=== PATIENT | female | born 1980 | race Caucasian/White ===

== ENCOUNTER 2018-04-28 07:34 | Emergency (ER) | payer MEDICAID ==
[2018-04-28 07:41] VITALS: BP 117/76; PULSE 76; RESP 18; TEMP 98.1
[2018-04-28] MEDS ORDERED: KETOROLAC 30 MG/ML 1 ML VIAL IM STA (07:53)
--- NOTE | 2018-04-28 07:53 | ED ---
General Adult HPI - General Chief complaint: Extremity Injury, Lower Stated complaint: left foot pain Time Seen by Provider: 04/28/18 07:43 Source: patient Mode of arrival: ambulatory Limitations: no limitations - Related Data Previous Rx's Medication Instructions Recorded HYDROcodone/APAP 5-325MG [Ralston 1 tab PO Q6HR PRN 3 Days #6 tab 04/28/18 5-325] Allergies Allergy/AdvReac Type Severity Reaction Status Date / Time latex Allergy Rash/Hives Verified 04/28/18 07:36 Review of Systems ROS Statement: Those systems with pertinent positive or pertinent negative responses have been documented in the HPI. ROS Other: All systems not noted in ROS Statement are negative. Past Medical History Past Medical History: No Reported History Additional Past Medical History / Comment(s): ectopic History of Any Multi-Drug Resistant Organisms: None Reported Past Psychological History: No Psychological Hx Reported Smoking Status: Former smoker Past Alcohol Use History: Occasional Past Drug Use History: None Reported General Exam Limitations: no limitations Course Vital Signs 04/28/18 07:36 Temperature 98.1 F Pulse Rate 76 Respiratory 18 Rate Blood Pressure 117/76 O2 Sat by Pulse 97 Oximetry Medical Decision Making - Medical Decision Making Dictation was produced using [facility] dictation software. please excuse any grammatical, word or spelling errors. Chief Complaint: 38-year-old female presents with left foot pain. History of Present Illness: Patient's 38-year-old female presents with left foot pain. Patient states her pain started last night at approximately 9 PM. Patient denies any inciting event to the left foot. States it started hurting last night. She went to bed when she woke up this morning. She tried to ambulate when she experience severe left pain with dorsiflexion of the left foot. Patient reports improvement of symptoms with plantar flexion. Patient denies any problems with the left foot. She does have a small mass over the arch of her foot. The ROS documented in this emergency department record has been reviewed and confirmed by me. Those systems with pertinent positive or negative responses have been documented in the HPI. All other systems are other negative and/or noncontributory. PHYSICAL EXAM: General Impression: Alert and oriented x3, not in acute distress HEENT: Normocephalic atraumatic, extra-ocular movements intact, pupils equal and reactive to light bilaterally, mucous membranes moist. Cardiovascular: Heart regular rate and rhythm, S1&S2 audible, no murmurs, rubs or gallops Chest: Lungs clear to auscultation bilaterally, no rhonchi, no wheeze, no rales Abdomen: Bowel sounds present, abdomen soft, non-tender, non-distended, no organomegaly Musculoskeletal: Pulses present and equal in all extremities, no peripheral edema, tenderness to palpation of the left dorsum. No erythema Motor: Power 5/5 bilaterally, no focal deficits noted Neurological: CN II-XII grossly intact, no focal motor or sensory deficits noted Skin: Intact with no visualized rashes Psych: Normal affect and mood ED course: 38-year-old female presents with left dorsal foot pain. No inciting traumatic event. no history of gout. Patient denies any gout risk factors. Vital signs upon arrival are within acceptable limits. Patient's foot appears atraumatic. Patient denies . X-rays are unremarkable. Patient given some Toradol with improvement of symptoms. At this point there is no clear answer as to the patient's symptoms are from. Highly doubt Lisfranc injury. Patient does have a cyst to the plantar surface of the foot which may cause imbalance causing stress injury versus tendinitis. Patient told to rest the foot. Patient told to ambulate with crutches until pain improves. Patient given referral to foot and ankle specialist. Given prescription for analgesia. Disposition Clinical Impression: Foot pain Disposition: HOME SELF-CARE Condition: Fair Instructions (If sedation given, give patient instructions): Arthralgia (ED) Prescriptions: HYDROcodone/APAP 5-325MG [Ralston 5-325] 1 tab PO Q6HR PRN 3 Days #6 tab PRN Reason: Severe Pain Is patient prescribed a controlled substance at d/c from ED?: Yes If prescribed controlled substance>3 days was MAPS reviewed?: Prescribed <3 Days Referrals: Darvin Guajardo MD [Medical Doctor] - 1-2 days Time of Disposition: 08:40
--- NOTE | 2018-04-28 08:29 | XR ---
EXAMINATION TYPE: XR foot complete LT DATE OF EXAM: 04/28/2018 CLINICAL HISTORY: Left foot pain near metatarsals. TECHNIQUE: Frontal, lateral, and oblique images of the left foot are obtained. COMPARISON: None FINDINGS: There is no acute fracture/dislocation evident in the left foot. The joint spaces in the left foot appear within normal limits. Mild subcutaneous edema along the lateral and plantar surface is noted most prominent hindfoot level. IMPRESSION: There is no acute fracture or dislocation in the left foot.
== END 2018-04-28 08:49 | disposition home or self-care (01) ==
LOC: EC 07:34
DX: M79.672 Pain in left foot (principal); L72.9 Follicular cyst of the skin and subcutaneous tissue, unspecified; Z91.040 Latex allergy status; Z87.891 Personal history of nicotine dependence
CPT/HCPCS: 73630; 99283; 96372; J1885

== ENCOUNTER → 2018-06-06 | Outpatient (CLI) | payer MEDICAID ==
--- NOTE | 2018-06-06 12:01 | US ---
EXAMINATION TYPE: US pelvic complete DATE OF EXAM: 06/06/2018 COMPARISON: NONE CLINICAL HISTORY: N92.1 Excessive and frequent menstruation. TECHNIQUE: Transabdominal (TA). Transabdominal sonographic images of the pelvis were acquired. Tra nsvaginal sonographic images were medically necessary to better assess the following anatomy: Date of LMP: 05/18/18 EXAM MEASUREMENTS: Uterus: 9.0 x 5.6 x 7.0 cm Endometrial Stripe: 1.0 cm Right Ovary: 3.1 x 1.8 x 1.6cm Left Ovary: 3.9 x 2.2 x 2.6 cm 1. Uterus: Anteverted, multiple fibroids, largest 2 measuring 1.7 x 1.3 x 1.9cm, and 2.9 x 2.2 x 2.6 cm 2. Endometrium: wnl 3. Right Ovary: wnl 4. Left Ovary: wnl 5. Bilateral Adnexa: wnl 6. Posterior cul-de-sac: wnl IMPRESSION: Fibroid uterus with the largest measuring 2.9 cm. These appear intramural with some possi issac subserosal. Endometrial thickness and ovaries are within normal limits.
== END | disposition home or self-care (01) ==
LOC: RADUSWWP 09:49
PROVIDERS: ATTEND Obstetrics & Gynecology
DX: D25.1 Intramural leiomyoma of uterus (principal)
CPT/HCPCS: 76856

== ENCOUNTER 2018-06-28 07:47 | Day surgery (SDC) | payer MEDICAID ==
[2018-06-20 10:50] LABS: Basophils # (A) 0.1 k/uL (0-0.2); Basophils % (A) 1 %; Eosinophils # (A) 0.2 k/uL (0-0.7); Eosinophils % (A) 4 %; HCT 37.5 % (34.0-46.0); HGB 12.6 gm/dL (11.4-16.0); Lymphocytes # (A) 2.3 k/uL (1.0-4.8); Lymphocytes % (A) 41 %; MCH 29.6 pg (25.0-35.0); MCHC 33.7 g/dL (31.0-37.0); Mean Platelet Volume 8.6; Monocytes # (A) 0.4 k/uL (0-1.0); Monocytes % (A) 8 %; Neutrophils # (A) 2.4 k/uL (1.3-7.7); Neutrophils % (A) 44 %; Platelet Count 269 k/uL (150-450); RBC 4.27 m/uL (3.80-5.40); WBC 5.5 k/uL (3.8-10.6)
[2018-06-26 08:52] VITALS: BMI 31.2
--- NOTE | 2018-06-28 06:52 | P.HPOB ---
History of Present Illness H&P Date: 06/28/18 Chief Complaint: Menorrhagia with irregular cycle 38 year old presents for D&C hysteroscopy and endometrial ablation with NovaSure. Review of Systems All systems: negative Constitutional: Denies chills, Denies fever Eyes: denies blurred vision, denies pain Ears, nose, mouth and throat: Denies headache, Denies sore throat Cardiovascular: Denies chest pain, Denies shortness of breath Respiratory: Denies cough Gastrointestinal: Denies abdominal pain, Denies diarrhea, Denies nausea, Denies vomiting Genitourinary: Denies dysuria, Denies hematuria Musculoskeletal: Denies myalgias Integumentary: Denies pruritus, Denies rash Neurological: Denies numbness, Denies weakness Psychiatric: Denies anxiety, Denies depression Endocrine: Denies fatigue, Denies weight change Past Medical History Past Medical History: No Reported History Additional Past Medical History / Comment(s): heavy, frequent periods History of Any Multi-Drug Resistant Organisms: None Reported Additional Past Surgical History / Comment(s): D & C, laparoscopic salpingectomy due to ectopic Past Anesthesia/Blood Transfusion Reactions: No Reported Reaction Smoking Status: Former smoker - Past Family History Mother Family Medical History: No Reported History Medications and Allergies Home Medications Medication Instructions Recorded Confirmed Type Acetaminophen Tab [Tylenol Tab] 650 mg PO Q4H PRN 06/26/18 06/26/18 History Ibuprofen [Motrin Ib] 200 - 400 mg PO Q6H PRN 06/26/18 06/26/18 History Allergies Allergy/AdvReac Type Severity Reaction Status Date / Time latex Allergy Rash/Hives Verified 06/26/18 08:48 Exam Osteopathic Statement: *. No significant issues noted on an osteopathic structural exam other than those noted in the History and Physical/Consult. Heart: RRR Lungs: CTAB Abdomen: soft, nontender Extremeties: neg reagan's Results Result Diagrams: 06/20/18 10:42 Assessment and Plan (1) Menorrhagia with irregular cycle Status: Acute Code(s): N92.1 - EXCESSIVE AND FREQUENT MENSTRUATION WITH IRREGULAR CYCLE SNOMED Code(s): 894257835 Plan: 1. D&C hysteroscopy and endometrial ablation with NovaSure
[~2018-06-28 07:47] MED LIST: DEXAMETHASONE SOD PHOSPHATE 10 MG/ML 1 ML VIAL IV ONE; HYDROmorphone 0.5 MG/0.5 ML SYRINGE IVP PRN; LACTATED RINGERS 1,000 ML IV SCH; LIDOCAINE 1% 20 ML VIAL (10MG/ML) FOR IV START INTRADERMA PRN; MIDAZOLAM (PF) 2 MG/2 ML VIAL IV PRN; ONDANSETRON 4 MG/2 ML VIAL IVP ONE; Pre Op ABX Message 1 EACH MISC MISCELLANE ONE; SCOPOLAMINE 1.5MG/72HR PATCH TRANSDERM ONE
[2018-06-28] MEDS ORDERED: GLYCOPYRROLATE 0.2 MG/ML 2 ML VIAL ONE (09:11)
[2018-06-28] MEDS ORDERED: LIDOCAINE 1% INJ 10MG/ML (20 ML MDV) ONE (09:11)
[2018-06-28] MEDS ORDERED: MIDAZOLAM 2 MG/2 ML VIAL ONE (09:11)
[2018-06-28] MEDS ORDERED: NEOSTIGMINE 1 MG/ML 10 ML VIAL ONE (09:11)
[2018-06-28] MEDS ORDERED: ROCURONIUM BROMIDE 10 MG/ML 10 ML VIAL IV ONE (09:11)
[2018-06-28] MEDS ORDERED: PROPOFOL 10 MG/ML 20 ML VIAL IV ONE (09:11)
[2018-06-28] MEDS ORDERED: fentaNYL (PF) 50 MCG/ML 2 ML AMP ONE (09:11)
[2018-06-28] MEDS ORDERED: BUPIVACAINE (PF) 0.5% 30 ML VIAL SQ ONE (10:10)
--- NOTE | 2018-06-28 10:35 | P.OP ---
Date of Procedure: 06/28/18 Preoperative Diagnosis: 1. Menorrhagia with irregular cycle 2. Family planning Postoperative Diagnosis: 1. Menorrhagia with irregular cycle 2. Family planning Procedure(s) Performed: D&C hysteroscopy with NovaSure ablation, laparoscopic tubal ligation Anesthesia: BEBO Surgeon: Amalia Jaquez Estimated Blood Loss (ml): 5 IV fluids (ml): 500 Urine output (ml): 200 Pathology: other (Endometrial curettings) Condition: stable Disposition: PACU Operative Findings: Moderate amount of endometrial curettings, and hysteroscopy I did see a septum at the fundus of the uterus, both ostia visualized. Cavity length 6.5 cm, width 4.0 cm, power 143 W, time of ablation 55 seconds. Adequate ablation after NovaSure. Normal uterus seen on laparoscopy, both fallopian tubes visualized, the right fallopian tube was scarred to the small bowel. Description of Procedure: Patient is taken the operating room where general anesthesia was obtained without difficulty. She was prepped and draped in normal sterile fashion dorsal lithotomy position, legs placed in the Urlist cane stirrups. Bladder was drained of all urine. Weighted speculum placed in the vagina and the anterior lip the cervix was grasped with serial tooth tenaculum. The uterus sounded to 10 cm and the cervix under 3.5 cm making the cavity length 6.5 cm. The cervix was dilated to #8 Hegar dilator. Hysteroscopy was then performed. Both ostia were visualized and there was a septum noted at the fundus of the uterus. Sharp curet was then gently used to obtain endometrial curettings. The NovaSure was introduced into the uterus with a cavity length of 6.5 cm, width 4 cm. after cavity assessment was passed, the time of ablation was 55 seconds at 143 W. Hysteroscopy was again performed and adequate ablation was noted. All instruments removed from the vagina. The [employer] manipulator was placed. Attention was then turned to the abdomen and gloves were changed. A 10 mm infraumbilical incision was made the scalpel and 10 mm optical trocar was placed under direct visualization. A 5 mm suprapubic Incision was made and a 5 mm optical trocar was placed under direct visualization. Survey of the pelvis revealed normal uterus tubes and ovaries. The left fallopian tube was scarred to the small bowel at the fimbriated end. The left fallopian tube was grasped with a Kleppinger and fulgurated 2-3 cm on this side in the ampullar portion. The right fallopian tube was grasped with a Kleppinger and fulgurated 2-3 cm in the ampullar portion. All instruments were then removed from the abdomen and vagina. The 10 mm infraumbilical incision was closed with 0 Vicryl and the fascial layer and then 4-0 Vicryl in a subcuticular fashion. The 5 mm incision was closed with 4-0 Vicryl in a subcuticular fashion. Patient tolerated pro cedure well, sponge and instrument counts correct 2 and she was taken to recovery room in stable condition.
[2018-06-28] MEDS ORDERED: ONDANSETRON 4 MG/2 ML VIAL IVP ONE (10:40)
[2018-06-28 10:48] VITALS: RESP 16; TEMP 97.7
[2018-06-28] MEDS ORDERED: KETOROLAC 30 MG/ML 1 ML VIAL IVP ONE (10:55)
[2018-06-28] MEDS ORDERED: LACTATED RINGERS 1,000 ML IV ONE (11:24)
[2018-06-28 11:46] VITALS: PULSE 53
[2018-06-28 11:49] VITALS: BP 119/71
== END 2018-06-28 12:17 | disposition home or self-care (01) ==
LOC: OR 07:47
PROVIDERS: ATTEND Obstetrics & Gynecology
DX: N92.0 Excessive and frequent menstruation with regular cycle (principal); Z30.2 Encounter for sterilization; Z87.891 Personal history of nicotine dependence; E66.9 Obesity, unspecified; Z68.31 Body mass index [BMI] 31.0-31.9, adult; Z91.040 Latex allergy status
CPT/HCPCS: 81025; 88305; 85025; 58563; 58670; J2250; J1100; J2710; J2405; J2001; J3010; J1885; J2704

== ENCOUNTER → 2020-06-02 | Outpatient (CLI) | payer MEDICAID, OTHER ==
--- NOTE | 2020-06-02 14:01 | MR ---
EXAMINATION TYPE: MR knee RT wo con DATE OF EXAM: 06/02/2020 COMPARISON: X-ray 04/09/2020 HISTORY: Right Knee Pain. Outer right side of knee is most painful. Started 9 months ago, no injury TECHNIQUE: Multiplanar, multisequence imaging of the right knee is performed without IV contrast. FINDINGS: MEDIAL MENISCUS: There is intrasubstance signal in the posterior horn the medial meniscus. Mucoid deg eneration favored over tear. LATERAL MENISCUS: There is grade 3 linear signal in the posterior horn of the medial meniscus compati ble with a linear tear. CRUCIATE LIGAMENTS: The anterior and posterior cruciate ligaments are intact and unremarkable. COLLATERAL LIGAMENTS: The medial collateral ligament and lateral collateral ligament complex are inta ct and unremarkable. EXTENSOR MECHANISM: Visualized quadriceps and patellar tendons are intact. EFFUSION: No significant suprapatellar joint effusion. POPLITEAL CYST: No popliteal/rodas cyst. TRICOMPARTMENT SPACES: Mild narrowing of the joint spaces with no erosive change. Mild thinning of th e posterior lateral femoral condylar cartilage BONE MARROW SIGNAL: Small focal less than 1 cm area of abnormal signal posterior lateral femoral cond yle is nonspecific and may represent a small area of reactive marrow edema. Early osteochondritis fel t less likely. IMPRESSION: 1. Findings are compatible with a tear involving the posterior horn of the lateral meniscus. 2. Extensive degeneration favored over subtle tear posterior horn medial meniscus 3. 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 There is adjacent abnormal marrow signal measuring less than centimeter which may represent react jody marrow edema although early osteochondritis not excluded. 4. No evidence of ligamentous injury
== END ==
LOC: RADMRIMAIN 09:40
PROVIDERS: ATTEND Orthopaedic Surgery
DX: M17.11 Unilateral primary osteoarthritis, right knee (principal); M94.261 Chondromalacia, right knee

== ENCOUNTER 2020-06-23 11:03 | Day surgery (SDC) | payer MEDICAID, OTHER ==
[2020-06-18 15:59] VITALS: BMI 30.9
[~2020-06-23 11:03] MED LIST changes: -DEXAMETHASONE SOD PHOSPHATE 10 MG/ML 1 ML VIAL IV ONE; +DEXAMETHASONE SOD PHOSPHATE 4 MG/ML 1 ML VIAL IV ONE; +LIDOCAINE 1% (10MG/ML) FOR IV START INTRADERMA PRN; -LIDOCAINE 1% 20 ML VIAL (10MG/ML) FOR IV START INTRADERMA PRN; -MIDAZOLAM (PF) 2 MG/2 ML VIAL IV PRN; +MIDAZOLAM 2 MG/2 ML VIAL IV PRN; -ONDANSETRON 4 MG/2 ML VIAL IVP ONE; -SCOPOLAMINE 1.5MG/72HR PATCH TRANSDERM ONE
[2020-06-23] MEDS ORDERED: ONDANSETRON 4 MG/2 ML VIAL IVP ONE (11:32)
[2020-06-23] MEDS ORDERED: ONDANSETRON 4 MG/2 ML VIAL ONE (11:33)
[2020-06-23] MEDS ORDERED: fentaNYL (PF) 50 MCG/ML 2 ML AMP ONE (12:21)
[2020-06-23] MEDS ORDERED: ceFAZolin 1,000 MG VIAL IVPB ONE (12:21)
[2020-06-23] MEDS ORDERED: LIDOCAINE 1% INJ 10MG/ML (20 ML MDV) ONE (12:21)
[2020-06-23] MEDS ORDERED: BUPIVACAINE (PF) 0.5% 30 ML VIAL INTRAARTIC ONE (12:21)
[2020-06-23] MEDS ORDERED: MIDAZOLAM 2 MG/2 ML VIAL ONE (12:21)
[2020-06-23] MEDS ORDERED: PROPOFOL 10 MG/ML 20 ML VIAL IV ONE (12:21)
--- NOTE | 2020-06-23 13:01 | P.OP ---
Date of Procedure: 06/23/20 Preoperative Diagnosis: torn lateral meniscus right knee Postoperative Diagnosis: 1. Torn lateral meniscus right knee 2. grade 2 chondromalacia patellofemoral compartment 3. Synovitis Procedure(s) Performed: 1. Arthroscopy of the right knee with partial lateral meniscectomy (20% of the meniscus excised) 2. Chondroplasty of the patellofemoral compartment 3. partial synovectomy of the medial femoral, lateral femoral, and patellofemoral compartments. Anesthesia: GETA Surgeon: Jeison Williamson Estimated Blood Loss (ml): 5 Pathology: none sent Condition: stable Disposition: PACU Indications for Procedure: this is a 40-year-old female who presented to my office with pain in her right knee. MRI demonstrated a torn lateral meniscus. After discussing the surgical and nonsurgical treatment options, the patient wishes to proceed with arthroscopic debridement of her right knee. Informed consent was obtained. Operative Findings: the operative findings are consistent with a torn lateral meniscus, grade 2 chondromalacia of the patellofemoral compartment, and synovitis. Description of Procedure: Patient was seen and evaluated in the preoperative area, the operative site was marked with a skin marker. The patient was then brought to the operating room and given 2 g of Ancef intravenously. A general anesthetic was administered by the anesthesia department. Tourniquet was placed on the right upper thigh and the left lower extremity was then prepped and draped in usual sterile fashion. A universal timeout was then performed confirming the patient's name, surgical site, ALLERGIES, and consent. The limb was then exsanguinated and tourniquet insufflated to 250 mmHg. Standard inferior medial and inferior lateral portals were established in the knee. The trochar was inserted in the inferolateral portal. Examination began at the patellofemoral joint. There is noted to be grade 2-3 chondral malacia the patellofemoral compartment and a moderate amount of synovitis. Next the medial compartment was visualized. There was no evidence of a tear of the medial meniscus. There was mild amount of synovitis. The notch area was then visualized and the ACL was intact. The Lateral compartment was then visualized and there was a tear of the lateral horn of the lateral meniscus. There was no evidence of chondromalacia, but a mild amount of synovitis. Next, using an arthroscopic shaver and a biter, a partial lateral meniscectomy was also performed with approximately 20% of the lateral meniscus excised. A partial synovectomy is performed the medial femoral, lateral femoral, patellofemoral compartments. Chondroplasty was also performed of the patellofemoral compartment of the knee. Knee was then copiously irrigated, instruments removed, incisions were closed with 4-0 nylon. 30 mL of quarter percent plain Marcaine was injected sterilely into the surgical area. A sterile dressing was then applied, and the tourniquet was released. Patient was then transferred to recovery room in stable condition.condition.
[2020-06-23 13:24] VITALS: TEMP 96.9
[2020-06-23 13:27] VITALS: RESP 16
[2020-06-23] MEDS ORDERED: HYDROcodone/APAP 7.5-325MG 1 EACH TAB ONE (13:51)
[2020-06-23] MEDS ORDERED: HYDROcodone/APAP 7.5-325MG 1 EACH TAB PO ONE (13:52)
[2020-06-23 14:21] VITALS: BP 116/71; PULSE 61
== END 2020-06-23 14:46 | disposition home or self-care (01) ==
LOC: OR 11:03
PROVIDERS: ATTEND Orthopaedic Surgery
DX: M23.200 Derangement of unspecified lateral meniscus due to old tear or injury, right knee (principal); M22.41 Chondromalacia patellae, right knee; M65.9 Synovitis and tenosynovitis, unspecified; Z79.1 Long term (current) use of non-steroidal anti-inflammatories (NSAID); Z97.3 Presence of spectacles and contact lenses; Z98.890 Other specified postprocedural states; Z83.3 Family history of diabetes mellitus; Z82.49 Family history of ischemic heart disease and other diseases of the circulatory system; Z87.891 Personal history of nicotine dependence
CPT/HCPCS: 81025; 29881; J2250; J1100; J2405; J0690; J2001; J3010; J2704

== ENCOUNTER → 2021-03-01 | Outpatient (CLI) | payer MEDICAID, BC, OTHER | END | disposition home or self-care (01) | LOC: LABWHC1 13:40 | PROVIDERS: ATTEND Emergency Medicine | DX: U07.1 COVID-19 (principal) | CPT/HCPCS: 87635 ==

== ENCOUNTER → 2021-12-09 | Outpatient (CLI) | payer MEDICAID, BC ==
--- NOTE | 2021-12-09 08:04 | US ---
EXAMINATION TYPE: US abdomen complete DATE OF EXAM: 12/09/2021 COMPARISON: NONE CLINICAL HISTORY: R14.0 ABDOMINAL DISTENSION , R19.4. bloating, abdominal pain TECHNIQUE: Multiple sonographic images of the abdomen are obtained. FINDINGS: EXAM MEASUREMENTS: Liver Length: 14.7 cm Gallbladder Wall: 0.2 cm CBD: 0.6 cm Spleen: 9.1 cm Right Kidney: 12.0 x 4.8 x 4.4 cm Left Kidney: 12.6 x 5.0 x 5.3 cm Pancreas: Obscured by bowel gas Liver: hyperechoic area = 1.8 x 2.3 x 1.8cm Gallbladder: no evidence of stones Evidence for sonographic Roberto's sign: no CBD: wnl Spleen: wnl Right Kidney: no evidence of hydronephrosis Left Kidney: no evidence of hydronephrosis Upper IVC: wnl Abd Aorta: visualized portions appear wnl, mid obscured by overlying bowel content Suboptimal evaluation pancreas on initial images due to overlying bowel gas. Aorta seen to the bifurc ation without aneurysm. IVC seen near hepatic dome. Visualized liver shows 2.3 x 1.8 cm oval hyperech oic mass. No ductal dilatation. Gallbladder seen without intraluminal gallstones. No hydronephrosis i n either kidney. Spleen normal in size.. IMPRESSION: Suboptimal evaluation of pancreas otherwise unremarkable study. No ascites noted. Solid 2 .3 cm hyperechoic mass in the liver favors hemangioma. Liver protocol contrast enhanced CT and/or MRI can be performed to further evaluate.
--- NOTE | 2021-12-09 08:15 | US ---
EXAMINATION TYPE: US pelvic complete DATE OF EXAM: 12/09/2021 COMPARISON: Ultrasound pelvis June 06, 2018 CLINICAL HISTORY: R14.0 ABDOMINAL DISTENSION , R19.4. bloating, pelvic pain, ablation TECHNIQUE: Transabdominal (TA). Date of LMP: 11/18/21 EXAM MEASUREMENTS: Uterus: 14.4 x 5.5 x 11.3 cm Endometrial Stripe: 0.4 cm Right Ovary: 3.8 x 1.8 x 2.1 cm Left Ovary: 3.7 x 2.4 x 2.5 cm 1. Uterus: Anteverted enlarged. heterogeneous. multiple fibroids noted. largest = 8.5 x 5.1 x 8.5c m 2. Endometrium: limited evaluation due to fibroids, appears wnl 3. Right Ovary: follicles noted 4. Left Ovary: complex area = 2.2 x 1.6 x 1.9cm 5. Bilateral Adnexa: wnl 6. Posterior cul-de-sac: wnl Heterogeneous lobulated enlarged uterus redemonstrated with multiple fibroids. This is measuring larg er than 2019 ultrasound. Endometrial stripe not seen with certainty. No free fluid. Both ovaries are present. Left ovary has suspected involuting follicle. No suspicious adnexal masses. IMPRESSION: Persistent fibroid uterus with suspected interval enlargement from 2019 ultrasound.
== END | disposition home or self-care (01) ==
LOC: RADUSWWP 07:02
PROVIDERS: ATTEND Family Medicine
DX: R16.0 Hepatomegaly, not elsewhere classified (principal); D25.9 Leiomyoma of uterus, unspecified; R19.4 Change in bowel habit
CPT/HCPCS: 76700; 76856

== ENCOUNTER 2023-01-18 11:29 | Emergency (ER) | payer BC ==
[2023-01-18 11:45] VITALS: RESP 18
[2023-01-18] MEDS ORDERED: methylPREDNISolone SOD SUCCI 125 MG/2 ML VIAL IM ONE (12:03)
[2023-01-18] MEDS ORDERED: FAMOTIDINE 20 MG TAB PO STA (12:07)
--- NOTE | 2023-01-18 12:07 | ED ---
Skin/Abscess/FB HPI - General Chief complaint: Skin/Abscess/Foreign Body Stated complaint: Allergic Reaction Time Seen by Provider: 01/18/23 11:40 Source: patient, RN notes reviewed Mode of arrival: ambulatory Limitations: no limitations - History of Present Illness Initial comments: 42-year-old female was unresponsive with chief complaint ALLERGIC reaction states she got into some poison anabel but not still worsening rash and hives. Patient denies any difficulty breathing no difficulty swallowing no other complaints she states she only took Zyrtec today. - Related Data Previous Rx's Medication Instructions Recorded Aspirin 325 mg PO BID 14 Days #28 tab 06/23/20 HYDROcodone/APAP 7.5-325MG [Jupiter 1 tab PO Q4-6H PRN #30 tab 06/23/20 7.5-325] Sennosides [Senokot] 2 tab PO DAILY PRN #60 tablet 06/23/20 predniSONE 50 mg PO DAILY #5 tab 01/18/23 Allergies Allergy/AdvReac Type Severity Reaction Status Date / Time latex Allergy Rash/Hives Verified 01/18/23 11:44 Review of Systems ROS Statement: Those systems with pertinent positive or pertinent negative responses have been documented in the HPI. ROS Other: All systems not noted in ROS Statement are negative. Past Medical History Past Medical History: No Reported History Additional Past Medical History / Comment(s): heavy, frequent periods History of Any Multi-Drug Resistant Organisms: None Reported Past Surgical History: Uterine Ablation Additional Past Surgical History / Comment(s): D & C, laparoscopic salpingectomy due to ectopic Past Anesthesia/Blood Transfusion Reactions: No Reported Reaction Past Psychological History: No Psychological Hx Reported Smoking Status: Former smoker - Past Family History Mother Family Medical History: No Reported History General Exam Limitations: no limitations General appearance: alert, in no apparent distress Head exam: Present: atraumatic, normocephalic, normal inspection Eye exam: Present: normal appearance, PERRL, EOMI. Absent: scleral icterus, conjunctival injection, periorbital swelling ENT exam: Present: normal exam, normal oropharynx, mucous membranes moist Neck exam: Present: normal inspection, full ROM. Absent: tenderness, meningismu s, lymphadenopathy Respiratory exam: Present: normal lung sounds bilaterally. Absent: respiratory distress, wheezes, rales, rhonchi, stridor Neurological exam: Present: alert Skin exam: Present: warm, dry, intact, normal color, rash Course Vital Signs 01/18/23 01/18/23 11:41 12:24 Temperature 97.8 F 98 F Pulse Rate 78 74 Respiratory 18 18 Rate Blood Pressure 146/79 139/72 O2 Sat by Pulse 99 99 Oximetry Medical Decision Making - Medical Decision Making Was pt. sent in by a medical professional or institution (, [facility], CUFF [facility]TER, urgent care, hospital, or longterm...) When possible be specific @ -No Did you speak to anyone other than the patient for history (EMS, parent, family, police, friend...)? What history was obtained from this source @ -No Did you review nursing and triage notes (agree or disagree)? Why? @ -I reviewed and agree with nursing and triage notes Were old charts reviewed (outside hosp., previous admission, EMS record, old EKG, old radiological studies, urgent care reports/EKG's, longterm records)? Report findings @ -No old charts were reviewed Differential Diagnosis (chest pain, altered mental status, abdominal pain women, abdominal pain men, vaginal bleeding, weakness, fever, dyspnea, syncope, headache, dizziness, GI bleed, back pain, seizure, CVA, palpatations, mental health, musculoskeletal)? @ -ALLERGIC reaction, contact dermatitis EKG interpreted by me (3pts min.). @ -None X-rays interpreted by me (1pt min.). @ -None done CT interpreted by me (1pt min.). @ -None done U/S interpreted by me (1pt. min.). @ -None done What testing was considered but not performed or refused? (CT, X-rays, U/S, labs)? Why? @ -None What meds were considered but not given or refused? Why? @ -None Did you discuss the management of the patient with other professionals (professionals i.e. BRUCE Hernandez, CUFF SETTER, lab, RT, psych nurse, professor of social work, gang plank workman, teacher, unemployment insurance hearing officer, case finishing machine adjuster)? Give summary @ -No Was smoking cessation discussed for >3mins.? @ -No Was critical care preformed (if so, how long)? @ -No Were there social determinants of health that impacted care today? How? (Homelessness, low income, unemployed, alcoholism, drug addiction, transportation, low edu. Level, literacy, decrease access to med. care, longterm, rehab)? @ -No Was there de-escalation of care discussed even if they declined (Discuss DNR or withdrawal of care, Hospice)? DNR status @ -No What co-morbidities impacted this encounter? (DM, HTN, Smoking, COPD, CAD, Cancer, CVA, ARF, Chemo, Hep., AIDS, mental health diagnosis, sleep apnea, morbid obesity)? @ -None Was patient admitted / discharged? Hospital course, mention meds given and route, prescriptions, significant lab abnormalities, going to OR and other pertinent info. @ -Discharge patient will continue antihistamines, was given Solu-Medrol be discharged with prednisone. Undiagnosed new problem with uncertain prognosis? @ -No Drug Therapy requiring intensive monitoring for toxicity (Heparin, Nitro, Insulin, Cardizem)? @ -No] Were any procedures done? @ -[No] Diagnosis/symptom? @ -[ALLERGIC reaction Acute, or Chronic, or Acute on Chronic? @ -[Acute Uncomplicated (without systemic symptoms) or Complicated (systemic symptoms)? @ -[Uncomplicated Side effects of treatment? @ -[No] Exacerbation, Progression, or Severe Exacerbation? @ -[No] Poses a threat to life or bodily function? How? (Chest pain, [place], [place], pneumonia, PE, COPD, DKA, ARF, appy, cholecystitis, CVA, Diverticulitis, Homicidal, Suicidal, threat to staff... and all critical care pts) @ -[No] Disposition Clinical Impression: Allergic reaction, Contact allergic reaction Disposition: HOME SELF-CARE Condition: Stable Instructions (If sedation given, give patient instructions): General Allergic Reaction (ED) Additional Instructions: Please return to the Emergency Department if symptoms worsen or any other concerns. Prescriptions: predniSONE 50 mg PO DAILY #5 tab Is patient prescribed a controlled substance at d/c from ED?: No Referrals: None,Stated [REFERRING] - 1-2 days Time of Disposition: 12:07
[2023-01-18 12:26] VITALS: BP 139/72; PULSE 74; TEMP 98
== END 2023-01-18 12:24 | disposition home or self-care (01) ==
LOC: EC 11:29
DX: L23.9 Allergic contact dermatitis, unspecified cause (principal); Z87.891 Personal history of nicotine dependence; Z91.040 Latex allergy status
CPT/HCPCS: 99282; 96372; J2930

== ENCOUNTER 2023-01-31 08:17 | Day surgery (SDC) | payer BC ==
[2023-01-26 11:51] VITALS: BMI 29.2
[~2023-01-31 08:17] MED LIST changes: -HYDROmorphone 0.5 MG/0.5 ML SYRINGE IVP PRN; -LACTATED RINGERS 1,000 ML IV SCH; -MIDAZOLAM 2 MG/2 ML VIAL IV PRN; +ONDANSETRON 4 MG/2 ML VIAL IVP ONE; -Pre Op ABX Message 1 EACH MISC MISCELLANE ONE
[2023-01-31] MEDS: LACTATED RINGERS 1,000 ML IV SCH ×3 (09:00→18:21)
[2023-01-31 09:05] LABS: Glucose,Whole Blood 98 mg/dL (70-110)
[2023-01-31] MEDS ORDERED: MIDAZOLAM 2 MG/2 ML VIAL IVP ONE (09:18)
[2023-01-31] MEDS ORDERED: diphenhydrAMINE 50 MG/ML 1 ML VIAL ONE (09:44)
[2023-01-31] MEDS ORDERED: diphenhydrAMINE 50 MG/ML 1 ML VIAL IVP ONE (09:47)
[2023-01-31] MEDS ORDERED: PROPOFOL 10 MG/ML 20 ML VIAL IV ONE (09:58)
[2023-01-31] MEDS ORDERED: MIDAZOLAM 2 MG/2 ML VIAL ONE (09:58)
[2023-01-31] MEDS ORDERED: HYDROmorphone (PF) 1 MG/ML ONE (09:58)
[2023-01-31] MEDS ORDERED: SUCCINYLCHOLINE CHLORIDE 200 MG/10 ML VIAL IV ONE (09:58)
[2023-01-31] MEDS ORDERED: fentaNYL (PF) 50 MCG/ML 2 ML AMP ONE (09:58)
[2023-01-31] MEDS ORDERED: NEOSTIGMINE 1 MG/ML 10 ML VIAL ONE (09:58)
[2023-01-31] MEDS ORDERED: GLYCOPYRROLATE 0.2 MG/ML 2 ML VIAL ONE (09:58)
[2023-01-31] MEDS ORDERED: ROCURONIUM 10 MG/ML (5 ML VIAL) IV ONE (09:58)
[2023-01-31] MEDS ORDERED: LIDOCAINE 1% INJ 10MG/ML (20 ML MDV) ONE (09:58)
[2023-01-31] MEDS ORDERED: BUPIVACAINE (PF) 0.5% 30 ML VIAL SQ ONE (10:42)
[2023-01-31] MEDS ORDERED: LACTATED RINGERS 1,000 ML IV ONE (11:49)
[2023-01-31] MEDS ORDERED: SIMETHICONE 80 MG CHEWABLE PO PRN (11:53)
[2023-01-31] MEDS ORDERED: Acetaminophen-Codeine 300-30mg TAB PO PRN ×2 (11:53)
--- NOTE | 2023-01-31 12:03 | P.OP ---
Date of Procedure: 01/31/23 Preoperative Diagnosis: Menorrhagia, uterine fibroids, pelvic pain Postoperative Diagnosis: Same Procedure(s) Performed: Robotic-assisted vaginal hysterectomy diagnostic cystoscopy Anesthesia: BEBO Surgeon: Valerie Thompson Play Therapist #1: Elena Acevedo Estimated Blood Loss (ml): 75 IV fluids (ml): 800 Urine output (ml): 150 Pathology: other (Uterus, cervix, multiple fibroids) Condition: stable Disposition: PACU Indications for Procedure: Heavy menstrual bleeding, enlarged uterus with multiple fibroids largest measuring 8 cm Operative Findings: Grossly enlarged globular uterus with multiple fibroids, normal ovaries bilaterally, normal cystoscopy findings, bladder mucosa intact, both ureteral orifices spilling clear yellow urine Description of Procedure: Patient was taken back to the operating suite where general anesthesia was obtained without difficulty by the anesthesia department. She was prepped and draped in the normal sterile fashion in the dorsal lithotomy position. A Dobbins catheter was then placed under sterile technique. A weighted speculum was placed in the posterior vaginal vault and the anterior lip of the cervix is vis ualized and grasped with a single-tooth tenaculum. The endocervical canal was then serially dilated. A V care uterine and bladder was advanced into the uterus as a means to manipulate the uterus throughout the procedure. The balloon was insufflated with air the Was placed snugly against the cervix and all instruments were removed from the patient's vaginal vault. Attention was then turned to the patient's abdomen where approximately 2 finger breaths above the umbilicus a small skin incision is made. Through this incision a Veress needle is placed. Once the Veress needle was deemed to be in the appropriate position with a drop of CO2 pressure with insufflation of CO2 gas CO2 insufflation was allowed to occur. About 3 L of gas were used to obtain pneumoperitoneum. At this time the 8 mm trocar and sleeve with the laparoscope in place was placed through the skin incision and toward the pneumoperitoneum under direct visualization. The above-noted findings were visualized. The geoffrey tional port sites are then placed at 10 cm lateral and 37 m inferior to midline port these are 8 mm ports and operative ports and the da Santi machine. In addition a 12 mm skin incision is made in the left upper quadrant where a 12 mm trochars placed under direct visualization. At this time the da Santi was docked in the usual fashion. The operative arms are now placed, in the right operative arm the monopolar scissors is placed, and the left operative arm the bipolar forceps is placed. The uterus was then elevated and the left utero- ovarian ligament was visualized coagulated distally and proximally and divided. The round ligament was visualized coagulated and transected hemostasis was noted. The pelvic sidewall was opened and the bladder flap was created using sharp and blunt dissection from the left. Attention was then turned to the patient's right adnexa the ovary was normal in nature the uterine ovarian ligament was visualized coagulated distally and proximally and divided. This continued toward the round ligament which was coagulated distally and proximally divided. The bladder flap from the right was then created using sharp and blunt dissection. A Ray-Elza was then introduced into the abdomen and the further dissect the bladder away from the operating field. This was then removed. The ascending branch the uterine artery from the right was then visualized coagu lated and transected, any further vasculature that was appreciated was coagulated and transected with good hemostasis appreciated. Attention was then turned to the patient's left cervical uterine junction any further vasculature that was appreciated was coagulated and transected. At this time the only remaining attachment was a vaginal attachment therefore colpotomy incision was made in a circumferential fashion. The uterus and cervix were delivered through the vaginal opening without difficulty. On inspection a small piece of the cervix was appreciated at 12:00 this was then transected and hemostasis was noted. The pelvis was then copiously irrigated. The vaginal cuff was then closed with multiple [id number] sutures of 0 Vicryl. Approximate 6 sutures were used to obtain closure. The pelvis was then copiously irrigated once again hemostasis was noted but Surgicel powder was placed along the vaginal cuff for a small amount of oozing that was appreciated. Both ureters were appreciated in the pelvis and pulsating normally with no dilation appreciated. All instruments were then removed from the patient's abdomen and the da Santi was undocked in usual fashion. The Dobbins catheter was then removed without difficulty of clear yellow urine was noted to be draining. The cystoscope was then performed. The cystoscope was placed through the urethra and toward the bladder bladder bubbles appreciated both ureteral orifices were noted to be spilling clear yellow urine. A complete survey the bladder normal mucosa was appreciated. Cystoscope was removed and the Dobbins catheter was replaced. Attention was then turned the patient's abdomen the skin incisions were closed with 4-0 Vicryl in a septic fashion. Steri-Strips and sterile dressings were applied. All counts were correct 2 at the end of the procedure. Patient tolerated procedure well and was taken the recovery room awake in stable condition.
[2023-01-31] MEDS: HYDROmorphone 0.5 MG/0.5 ML SYRINGE IVP PRN ×2 (12:12→12:32)
[2023-01-31] MEDS ORDERED: ONDANSETRON 4 MG/2 ML VIAL IVP ONE (12:16)
[2023-01-31] MEDS ORDERED: ACETAMINOPHEN IV (For NPO) 1,000 MG in EMPTY BAG 1 BAG IVPB ONE (12:30)
[2023-01-31] MEDS ORDERED: IBUPROFEN IV 800 MG in SODIUM CHLORIDE 0.9% 250 ML IV ONE (12:30)
[2023-01-31] MEDS ORDERED: MEPERIDINE 50 MG/ML SYRINGE IVP ONE (12:41)
--- NOTE | 2023-01-31 14:10 | P.ANPRN ---
Procedure Note - Anesthesia - Epidural/Spinal Spinal Time Out Performed: Yes Date of Procedure: 01/31/23 Procedure Start Time: :17 Procedure Stop Time: :21 Location of Patient: PreOp Indication: Acute Post-Operative Pain Sedation Type: Sedate with meaningful contact maintained Preparation: Sterile Prep Position: Sitting Needle Guage: 25 Blood Aspirated: No Pain Paresthesia on Injection Noted: No Events: Uneventful and Well Tolerated (fentanyl 25 mics plus duramorph 300 mics)
[2023-01-31] MEDS: diphenhydrAMINE 50 MG/ML 1 ML VIAL IVP PRN (18:21)
[2023-01-31] MEDS: NITROFURANTOIN MONOHYD/M-CRYST 100 MG CAP PO SCH (20:52)
[2023-01-31] MEDS: SENNOSIDES-DOCUSATE SODIUM 1 EACH TAB PO SCH (21:07)
[2023-02-01] MEDS: diphenhydrAMINE 50 MG/ML 1 ML VIAL IVP PRN (00:39)
[2023-02-01] MEDS: IBUPROFEN 600 MG TAB PO PRN ×2 (05:02→11:17)
[2023-02-01 05:53] LABS: Basophils % (A) 0 %; Eosinophils # (A) 0.1 k/uL (0-0.7); Eosinophils % (A) 1 %; HCT 37.7 % (34.0-46.0); HGB 12.8 gm/dL (11.4-16.0); Lymphocytes # (A) 1.6 k/uL (1.0-4.8); Lymphocytes % (A) 12 %; MCHC 34.1 g/dL (31.0-37.0); MCV 91.1 fL (80.0-100.0); Mean Platelet Volume 8.8; Monocytes # (A) 0.6 k/uL (0-1.0); Monocytes % (A) 5 %; Neutrophils # (A) 10.8 k/uL (1.3-7.7); Neutrophils % (A) 82 %; Platelet Count 241 k/uL (150-450); RBC 4.14 m/uL (3.80-5.40); RDW 12.2 % (11.5-15.5); WBC 13.1 k/uL (3.8-10.6)
--- NOTE | 2023-02-01 07:11 | P.PN ---
Progress Note - Text Progress Note Date: 02/01/23 Postoperative day 1 status post robotic-assisted vaginal hysterectomy and an en dotracheal anesthesia, and intrathecal morphine given for postoperative analgesia, patient doing well, there is no anesthesia related complications, Patient had no headache, vital signs stable , Assessment and plan= postop day 1 status post robotic hysterectomy, doing well there is no anesthesia related complication.
[2023-02-01] MEDS: SENNOSIDES-DOCUSATE SODIUM 1 EACH TAB PO SCH (08:12)
[2023-02-01] MEDS: NITROFURANTOIN MONOHYD/M-CRYST 100 MG CAP PO SCH (08:13)
[2023-02-01] MEDS: LACTATED RINGERS 1,000 ML IV SCH ×2 (08:21→08:22)
[2023-02-01 08:36] VITALS: BP 103/62; PULSE 78; RESP 15; TEMP 98.4
[2023-02-01] MEDS ORDERED: ACETAMINOPHEN TAB 325 MG TAB PO PRN (11:54)
--- NOTE | 2023-02-01 12:14 | P.DS ---
Providers Date of admission: 01/31/2023 Expected date of discharge: 02/01/23 Attending physician: Valerie Thompson Primary care physician: Adina Mosquera - Discharge Diagnosis(es) (1) Uterine fibroid Current Visit: Yes Status: Acute (2) Menorrhagia with irregular cycle Current Visit: No Status: Acute (3) Pelvic pain Current Visit: Yes Status: Acute (4) S/P hysterectomy Current Visit: Yes Status: Acute Hospital Course: 42 yo female that presented to the hospital yesterday for scheduled robotic cyst vaginal hysterectomy, diagnostic cystoscopy. Patient had known uterine fibroids and heavy menstrual bleeding. Patient requested definitive treatment with hysterectomy. For full details on this patient please see the dictated history and physical. Patient was taken back to the operating room where robotic- assisted vaginal hysterectomy with diagnostic cystoscopy was completed without difficulty. For full details on the surgery please see the dictated operative report. Patient's postoperative course has been uneventful. On this postoperative day #1 she is ambulating and voiding without difficulty. She is tolerating a regular diet without nausea or vomiting. She states her pain is well-controlled. She would like discharge home. Patient Condition at Discharge: Good Plan - Discharge Summary Discharge Rx Participant: No New Discharge Prescriptions: No Action Semaglutide [Wegovy] 2.4 mg SQ MATAMOROS Nitrofurantoin Monohyd/M-Cryst [Nitrofurantoin Medina-Mcr 100 mg] 100 mg PO BID Discharge Medication List Semaglutide [Wegovy] 2.4 mg SQ MATAMOROS 01/26/23 [History] Nitrofurantoin Monohyd/M-Cryst [Nitrofurantoin Medina-Mcr 100 mg] 100 mg PO BID 01/31/23 [History] Follow up Appointment(s)/Referral(s): Valerie Thompson DO [Doctor of Osteopathic Medicine] - 2 Weeks Patient Instructions/Handouts: Hysterectomy (DC), Laparoscopic Hysterectomy (DC), Vaginal Hysterectomy (DC) Activity/Diet/Wound Care/Special Instructions: No tub baths or intercourse until 6-8 weeks postoperatively, patient can expect late vaginal bleeding postoperatively. Patient is to call the office to make a routine postoperative appointment for 2 weeks. Should she have any concerns prior to this appointment she is asked to call the office Discharge Disposition: HOME SELF-CARE
== END 2023-02-01 13:15 | disposition home or self-care (01) ==
LOC: OR 08:17 → 4FBP 11:49 → OR 02-01 13:15
PROVIDERS: ATTEND Obstetrics & Gynecology Obstetrics
DX: D25.9 Leiomyoma of uterus, unspecified (principal); N72 Inflammatory disease of cervix uteri; N88.8 Other specified noninflammatory disorders of cervix uteri; N92.0 Excessive and frequent menstruation with regular cycle; N94.6 Dysmenorrhea, unspecified; G89.18 Other acute postprocedural pain; F10.90 Alcohol use, unspecified, uncomplicated; Z98.51 Tubal ligation status; Z96.659 Presence of unspecified artificial knee joint; Z98.890 Other specified postprocedural states; Z80.9 Family history of malignant neoplasm, unspecified; Z82.49 Family history of ischemic heart disease and other diseases of the circulatory system; Z87.891 Personal history of nicotine dependence; Z79.85 Long-term (current) use of injectable non-insulin antidiabetic drugs; Z79.899 Other long term (current) drug therapy; Z91.040 Latex allergy status
CPT/HCPCS: 52281; 58550; S2900; 81025; 85025; 88307

== ENCOUNTER → 2024-05-28 | Outpatient (CLI) | payer BC ==
--- NOTE | 2024-05-28 08:21 | MR ---
INDICATION: Patient age:Female; 44 years old; Reason for study: sclerotic lesion; PHH. COMPARISON: Abdominal ultrasound 12/09/2021. TECHNIQUE: Multi planar, multi sequence imaging was performed of the thoracic spine before and after the uneventful administration of 8 mL of Gadobutrol intravenously. FINDINGS: The thoracic vertebral bodies have preserved heights and alignment. T1/T2 hyperintense nonenhancing v ertebral body lesion most consistent with a benign hemangioma involving the T1 vertebral body. Anteri or osteophyte at T11-T12. There is low T1/isoT2 signal involving the endplates and anteriorly at T11- T12. No abnormal STIR signal in this region or evidence of enhancement. There is region of low T1/T2 signal involving the anterior mid to upper portion of the T12 vertebral body. Remaining osseous struc tures demonstrate normal signal intensity. Thoracic spinal cord appears unremarkable. There is no ev idence of extradural defects or central spinal canal narrowing at any thoracic vertebral body level. Intervertebral discs demonstrate normal signal intensity. Suggested disc protrusion at C6-C7 with mi ld effacement of anterior thecal thecal sac only visualized on sagittal imaging. T2 hyperintense enhancing partially visualized lesion within the right hepatic lobe measuring at leas t 2.0 cm. IMPRESSION: 1. Anterior osteophytosis with type II Modic changes involving the endplates around the T11-T12 disc possibly representing reported sclerotic lesion. No suspicious enhancement. 2. Benign vertebral hemangioma involving the T1 vertebral body. 3. No evidence of significant central canal neural foraminal stenosis of the thoracic spine. 4. Suggested disc protrusion at C6-C7 with mild effacement of the anterior thecal sac only visualize d on sagittal imaging. This can be further evaluated with MRI as clinically indicated. 5. Enhancing partially visualized right hepatic lobe 2.0 cm lesion probably representing echogenic l esion seen on prior ultrasound. Probably represents a hemangioma. This can be further evaluated with MRI as clinically indicated. [facility], , 05/28/2024 8:18 AM
== END | disposition home or self-care (01) ==
LOC: RADMRIMAIN 05:58
PROVIDERS: ATTEND Family Medicine
DX: M54.16 Radiculopathy, lumbar region (principal); D18.09 Hemangioma of other sites; M50.223 Other cervical disc displacement at C6-C7 level; M89.9 Disorder of bone, unspecified
CPT/HCPCS: 72157; A9585

== ENCOUNTER → 2024-06-26 | Outpatient (CLI) | payer BC ==
--- NOTE | 2024-06-26 21:43 | MR ---
EXAMINATION TYPE: MR lumbar spine wo/w con DATE OF EXAM: 06/26/2024 COMPARISON: NONE HISTORY: low back pain for 7 months due to injury. TECHNIQUE: Multiplanar, multisequence images of the lumbar spine is performed without and with IV contrast, util izing 8 mL intravenous Gadobutrol FINDINGS: Sagittal images of the lumbar spine show vertebral body heights and alignment to appear sat isfactory. There is disc desiccation with mild disc space narrowing at the L2-L3 level. The conus me dullaris is normal in position and signal ending at mid L1 level. The bone marrow signal intensity i s within normal limits. No suspicious postcontrast enhancement is seen. Axial images show T12-L1 and L1-L2 level to appear within normal limits. Axial images at L2-L3 level show mild broad disc bulge minimally effacing the anterior thecal sac. Bi lateral neural foramina are patent. Axial images at L3-L4 level appear within normal limits. Axial images at L4-L5 level show mild facet arthropathy bilaterally. Axial images at L5-S1 level show mild to moderate facet arthropathy bilaterally. Spinal canal is preserved. Bilateral neural foramina are patent. Survey images show 2.8 cm thin-walled cyst or cystic lesion in the right pelvis possible ovarian cyst . This can be better evaluated with pelvic ultrasound if desired. IMPRESSION: Mild multilevel degenerative changes in the lumbar spine as detailed above. [facility], , 06/26/2024 9:41 PM
== END | disposition home or self-care (01) ==
LOC: RADMRIMAIN 20:45
PROVIDERS: ATTEND Family Medicine
DX: M51.16 Intervertebral disc disorders with radiculopathy, lumbar region (principal); M47.26 Other spondylosis with radiculopathy, lumbar region; M89.9 Disorder of bone, unspecified
CPT/HCPCS: 72158; A9585